=== PATIENT | female | born 1965 | race Caucasian/White ===

== ENCOUNTER → 2020-11-02 | Outpatient (CLI) | payer BC | LOC: LAB SHORT 15:20 | DX: E11.9 Type 2 diabetes mellitus without complications (principal) | CPT/HCPCS: 83036 ==

== ENCOUNTER 2022-05-08 06:42 | Day surgery (SDC) | payer OTHER ==
[~2022-05-08] VITALS: Ht 172.7 cm; Wt 98.7 kg
[2022-05-08] MEDS ORDERED: CETI5 (07:02)
[2022-05-08] MEDS ORDERED: ATOR80 (07:02)
[2022-05-08] MEDS ORDERED: DIGOX125 MC1 (07:02)
[2022-05-08] MEDS ORDERED: PIOG15 (07:03)
[2022-05-08] MEDS ORDERED: MAGCHL64ER (07:03)
[2022-05-08] MEDS ORDERED: Amaryl1 MG (07:03)
[2022-05-08] MEDS ORDERED: METF500 (07:03)
[2022-05-08] MEDS ORDERED: TOUJEO MAX300 UNIT/2 (07:03)
[2022-05-08] MEDS ORDERED: METO100 (07:03)
[2022-05-08] MEDS ORDERED: Prinivil10 MG (07:03)
[2022-05-08] MEDS ORDERED: RALO60 (07:04)
[2022-05-08] MEDS ORDERED: XARELTO20 MG (07:04)
== END 2022-05-08 08:46 | disposition home or self-care (01) ==
LOC: ORSCSDS 06:42
PROVIDERS: Internal Medicine Gastroenterology
PROC: 0DBN8ZX Excision of Sigmoid Colon, Via Natural or Artificial Opening Endoscopic, Diagnostic (ICD-10-PCS; principal; 2022-05-08 08:00)
DX: Z12.11 Encounter for screening for malignant neoplasm of colon (principal); D12.5 Benign neoplasm of sigmoid colon; K64.8 Other hemorrhoids; Z86.010 Personal history of colon polyps; Z98.84 Bariatric surgery status; Z85.3 Personal history of malignant neoplasm of breast; I10 Essential (primary) hypertension; E11.9 Type 2 diabetes mellitus without complications; E78.2 Mixed hyperlipidemia; I48.0 Paroxysmal atrial fibrillation; Z79.899 Other long term (current) drug therapy; Z79.02 Long term (current) use of antithrombotics/antiplatelets; Z79.84 Long term (current) use of oral hypoglycemic drugs
CPT/HCPCS: 82947; 88305; J2704; J7120

== ENCOUNTER → 2024-06-13 | Outpatient (CLI) | payer OTHER ==
[~2024-06-13] MED LIST: ATOR80; Amaryl1 MG; CETI5; DIGOX125 MC1; MAGCHL64ER; METF500; METO100; PIOG15; Prinivil10 MG; RALO60; TOUJEO MAX300 UNIT/2; XARELTO20 MG
== END | disposition home or self-care (01) ==
LOC: LAB SHORT 15:51 → LAB 15:51
DX: R82.998 Other abnormal findings in urine (principal)
CPT/HCPCS: 87086; 87147

== ENCOUNTER → 2024-11-18 | Outpatient (CLI) | payer OTHER | LOC: LAB 09:35 → LAB SHORT 09:35 | DX: R39.9 Unspecified symptoms and signs involving the genitourinary system (principal) | CPT/HCPCS: 87077; 87086; 87186 ==

== ENCOUNTER → 2025-03-16 | Outpatient (CLI) | payer OTHER | LOC: LAB SHORT 16:15 → LAB 16:15 | DX: N39.0 Urinary tract infection, site not specified (principal) | CPT/HCPCS: 87086 ==

== ENCOUNTER 2025-05-23 14:09 | Day surgery (SDC) | payer OTHER ==
[~2025-05-23] VITALS: Ht 175.3 cm; Wt 96.3 kg
[~2025-05-23 14:09] MED LIST changes: +ATOR40TA PO; -ATOR80; +BIOTIN PLUS 5,1 EACH PO; +DOCU100 PO; -MAGCHL64ER; +MAGNESIUM CITR100 M1 PO; -METF500; +METF500 PO; +OZEMPIC2 MG/0.75 SC; -Prinivil10 MG; +Prinivil10 MG PO; -RALO60; +RALO60 PO; +SOTO80 PO; -TOUJEO MAX300 UNIT/2; +TOUJEO MAX300 UNIT/2 SC; -XARELTO20 MG; +XARELTO20 MG PO; +ZYRTEC10 M2 PO
[2025-05-23 14:53] VITALS: BP 129/77
--- NOTE | 2025-05-23 15:51 | NUR ---
05/23/25 1551 Alban Quintero History, Chart, Medications and Allergies reviewed before start of procedure. MONITOR INTACT WITH CONTINUOUS PULSE OXIMETRY, CONTINUOUS END TITAL CO2, 3-LEAD EKG AND INTERMITTENT BLOOD PRESSURE. 3-LEAD EKG REVIEWED WITH PHYSICIAN PRIOR TO START OF PROCEDURE. O2 VIA POM INTACT THROUGHOUT SEDATION/PROCEDURE. ALL BELONGINGS LEFT IN [facility].
--- NOTE | 2025-05-23 17:22 | NUR ---
Ambulatory in Day Surgery WITH STEADY GAIT. Discharge instructions reviewed with patient. Patient verbalizes understanding. Copy given to patient to take home. ALL BELONGINGS RETURNED TO PT. Discharged via wheelchair to private car for ride home WITH BOYFRIEND. PT REFUSED ANYTHING TO DRINK AFTER PROCEDURE.
== END 2025-05-23 22:58 | disposition home or self-care (01) ==
LOC: ORSCMMR 14:09 → ORD 15:30 → ORSCMMR 22:58
PROVIDERS: Family Medicine
PROC: 0DJD8ZZ Inspection of Lower Intestinal Tract, Via Natural or Artificial Opening Endoscopic (ICD-10-PCS; principal; 2025-05-23 15:30)
DX: Z12.11 Encounter for screening for malignant neoplasm of colon (principal); K57.30 Diverticulosis of large intestine without perforation or abscess without bleeding; Z86.0100 Personal history of colon polyps, unspecified; Z83.719 Family history of colon polyps, unspecified; I10 Essential (primary) hypertension; I48.0 Paroxysmal atrial fibrillation; I45.10 Unspecified right bundle-branch block; E78.2 Mixed hyperlipidemia; E11.9 Type 2 diabetes mellitus without complications; E66.9 Obesity, unspecified; Z68.31 Body mass index [BMI] 31.0-31.9, adult; Z79.01 Long term (current) use of anticoagulants; Z79.4 Long term (current) use of insulin; Z79.84 Long term (current) use of oral hypoglycemic drugs; Z79.85 Long-term (current) use of injectable non-insulin antidiabetic drugs; Z79.899 Other long term (current) drug therapy
CPT/HCPCS: 82947; J2704; J7120

== ENCOUNTER → 2025-07-12 | Outpatient (CLI) | payer OTHER | END | disposition home or self-care (01) | LOC: LAB 17:49 → LAB SHORT 17:49 | DX: N39.0 Urinary tract infection, site not specified (principal) | CPT/HCPCS: 87086 ==